=== PATIENT | female | born 1985 | race Caucasian/White ===

== ENCOUNTER → 2023-03-16 13:44 | Outpatient (BNVA) | payer OTHER, SELFPAY | PROVIDERS: PCP Family Medicine; Visit Provider Physician Assistant Surgical | DX: Z13.89 Encounter for screening for other disorder (principal) ==

== ENCOUNTER → 2023-04-17 12:51 | Outpatient (BNVA) | payer OTHER, SELFPAY | PROVIDERS: PCP Family Medicine; Visit Provider Physician Assistant Surgical ==

== ENCOUNTER 2023-05-08 07:12 | Outpatient (REF) | payer OTHER, SELFPAY ==
--- NOTE | ~2023-05-08 | XR_ITS ---
EXAMINATION: XR CHEST CLINICAL INFORMATION: Obesity COMPARISON: None available. TECHNIQUE: 2 views of the chest were obtained. FINDINGS: No significant abnormality is noted involving the heart, lungs, mediastinum, bony thorax or soft tissues. XR/XR chest 2V IMPRESSION: Unremarkable examination.
--- NOTE | 2023-05-08 07:22 | ECG_ITS ---
Test Reason : e66.01 Blood Pressure : / mmHG Vent. Rate : 057 BPM Atrial Rate : 057 BPM P-R Int : 124 ms QRS Dur : 096 ms QT Int : 428 ms P-R-T Axes : 036 033 035 degrees QTc Int : 416 ms Sinus bradycardia with sinus arrhythmia Otherwise normal ECG No previous ECGs available Referred By: Luis Oliver Electronically Signed By:DESHAUN GREWAL MD
[2023-05-08 07:42] LABS: MANUAL DIFF FLAG NO
[2023-05-08 08:01] LABS: Basophils Percent Auto 0.9 % (0-2); Eosinophils Absolute Auto 0.1 X10*3/uL (0.0-0.4); Eosinophils Percent Auto 2.4 % (0-4); Hematocrit 40.6 % (37.0-47.0); Imm Gran Abs Auto 0.01 X10*3/uL (0.00-0.03); Imm Gran Pct Auto 0.2 % (0.0-0.4); Lymphocytes Absolute Auto 1.5 X10*3/uL (1.2-4.9); Lymphocytes Percent Auto 33.5 % (20-40); Mean Corpuscular HGB Conc 34.5 g/dl (31.0-35.0); Mean Corpuscular Hemoglobin 31.7 pg (27.0-33.0); Mean Corpuscular Volume 91.9 fL (80.0-98.0); Mean Platelet Volume 11.6 fL (9.4-12.3); Monocytes Absolute Auto 0.2 X10*3/uL (0.1-1.2); Monocytes Percent Auto 5.3 % (2-11); Neutrophils Absolute Auto 2.6 x10*3/uL (2.0-8.3); Neutrophils Percent Auto 57.7 % (45-73); Platelet Count 234 X10*3/uL (160-400); Red Blood Count 4.42 X10*6/uL (4.20-5.50); Red Cell Distribution Width 12.5 % (11.0-16.0); White Blood Count 4.5 X10*3/uL (4.8-10.8)
[2023-05-08 08:04] LABS: Estimated Average Glucose 97 mg/dL
[2023-05-08 08:34] LABS: Alanine Aminotransferase 15 U/L (0-31); Alkaline Phosphatase 60 U/L (39-117); Anion Gap 14 (12-20); Aspartate Amino Transferase 20 U/L (5-31); Bilirubin Total 0.4 mg/dL (0.0-1.0); Blood Urea Nitrogen 15 mg/dL (9-16); Calcium 9.3 mg/dL (8.4-10.2); Carbon Dioxide 25 mmol/L (22-29); Chloride 106 mmol/L (96-108); Cholesterol 125 mg/dL; Estimated Glomerular Filt Rate > 60; Glucose Random 98 mg/dL (60-115); HDL Cholesterol 43 mg/dL; Iron 98 mcg/dL (30-160); LDL Cholesterol Calculated 71 mg/dl; Percent Iron Saturation 30 % (15-50); Potassium 3.9 mmol/L (3.3-5.1); Sodium 141 mmol/L (135-145); Total Iron Binding Capacity 327 mcg/dL (228-428); Triglycerides 58 mg/dL; Unsaturated Iron Binding 229 ug/dL
[2023-05-08 08:53] LABS: Ferritin 80 ng/mL (10-122); Insulin 7 uU/mL (2-29); TSH reflex Free T4 1.33 uIU/mL (0.32-4.0); Vitamin D 25-OH Total 30.3 ng/mL (>30)
[2023-05-08 09:06] LABS: Folate 17.3 ng/mL (> or = 4.0); Vitamin B12 1113 pg/mL (200-900)
[2023-05-13 01:57] LABS: Zinc 102 mcg/dL (60-130)
[2023-05-13 14:18] LABS: Calcium (PTHI) 8.9 mg/dL (8.6-10.2); PTHI 60 pg/mL (16-77)
[2023-05-14 02:43] LABS: Vitamin A 44 mcg/dL (38-98)
[2023-05-15 14:09] LABS: Vitamin B1 13 nmol/L (8-30)
== END 2023-05-08 07:13 | disposition home or self-care (01) ==
LOC: HO.LAB 07:12
PROVIDERS: Visit Provider Physician Assistant Surgical
DX: E66.01 Morbid (severe) obesity due to excess calories (principal)
CPT/HCPCS: 36415; 71046; 80053; 80061; 82306; 82607; 82728; 82746; 83036; 83525; 83540; 83970; 84425; 84443; 84590; 84630; 85025; 86140; 93005

== ENCOUNTER → 2023-05-15 15:09 | Outpatient (BNVA) | payer OTHER, SELFPAY | PROVIDERS: Referring Provider Physician Assistant Surgical; Visit Provider Counselor Mental Health ==

== ENCOUNTER → 2023-05-27 13:37 | Outpatient (BNVA) | payer OTHER, SELFPAY | PROVIDERS: Visit Provider Physician Assistant Surgical ==

== ENCOUNTER 2023-05-28 10:05 | Outpatient (REF) | payer OTHER, SELFPAY | END 2023-05-28 10:06 | disposition home or self-care (01) | LOC: HO.LNP 10:05 | PROVIDERS: Visit Provider Physician Assistant Surgical | DX: E66.01 Morbid (severe) obesity due to excess calories (principal) | CPT/HCPCS: 83013 ==

== ENCOUNTER 2023-06-01 15:40 | Outpatient (AMB) | payer OTHER, SELFPAY ==
--- NOTE | 2023-06-01 15:39 | MHC.AMNUTRGE ---
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 But now is starting to feel low energy. using Zone bars and Orgain shakes. 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 Her goal was weight loss but only lost 10# over the year Dietary counseling reduction Who buys your food self Who prepares/cooks your food self Meal frequency regular: breakfast (bagel with almond butter, banana, rice cakes with bulgarian yogurt), lunch (salad with cottage cheese ), dinner (chicken ) and snacks Lifestyle Eating out rarely or never Food frequency Meats/poultry/fish (protein): daily, Water: daily, Soda: never, Juice: never, Coffee: daily and Alcohol: never ( its been over a year since I've had a drink ) Diagnosis Nutrition problem #1 overweight/obesity As related to (etiology) #1 excess energy intake and physical inactivity As evidenced by (sign/symptom) #1 high BMI Monitoring/Goals Nutrition problem monitoring total energy intake, level of knowledge/skill, total PRO intake, total CHO intake and weight Outcome progress progressing Learning/Education Readiness to learn excellent Stages of change action Educational materials provided Yes Most Recent Diabetes Results: Cholesterol 125 mg/dL 05/08/23 HDL Cholesterol 43 mg/dL 05/08/23 Triglycerides 58 mg/dL 05/08/23 Creatinine 0.66 mg/dL (0.5-1.4) 05/08/23 Blood Urea Nitrogen 15 mg/dL (9-16) 05/08/23 Sodium 141 mmol/L (135-145) 05/08/23 Potassium 3.9 mmol/L (3.3-5.1) 05/08/23 Chloride 106 mmol/L (96-108) 05/08/23 Carbon Dioxide 25 mmol/L (22-29) 05/08/23 Calcium 9.3 mg/dL (8.4-10.2) 05/08/23 AST 20 U/L (5-31) 05/08/23 ALT 15 U/L (0-31) 05/08/23 Total Protein 7.0 g/dL (6.5-8.0) 05/08/23 Albumin 4.0 g/dL (3.5-5.0) 05/08/23 PFSH Surgical History Hx of cholecystectomy Hx of tubal ligation Hx of wisdom tooth extraction Family History Mother No problems noted. Father No problems noted. Daughter Anxiety Son Asthma Son No problems noted. Social History Alcohol intake: current Alcohol intake frequency: holidays/special occasions only Patient Tobacco Use Status: Never used Tobacco Assessment & Plan Assessment & Plan (1) Obesity (BMI 30-39.9): Code(s): E66.9 - Obesity, unspecified Patient Instructions: Has lost about 10# of muscle mass. recommended going back to 2 scoops of powder per shake and assess further changes as needed. Patient is cleared from a nutrition standpoint for bariatric surgery. Educational requirements have been completed. Reviewed vitamin supplementation and commitment to protein shake for several months post surgery. Encouraged communication with office as needed Telehealth Telehealth Location of provider rendering services: practice address Location of patient: address on file Patient Identification confirmed using: Name, : Yes Telehealth method: voice only Patient verbally consented to treatment: Yes Patient verbally consented to billing insurance company: Yes Patient informed of any privacy concerns related to visit: Yes Minutes spent on Phone/Video with Pt.: 30 Coding Level of Care Code Nutr Indiv Intake (20797) Diagnoses Obesity (BMI 30-39.9) E66.9 Time Spent (min) 30
[2023-06-01 15:49] VITALS: BMI 35.7
== END 2023-06-01 16:11 | disposition home or self-care (01) ==
LOC: HO.HBS 15:40
PROVIDERS: Referring Provider Physician Assistant Surgical; Visit Provider Dietitian, Registered
DX: E66.9 Obesity, unspecified (principal)

== ENCOUNTER → 2023-06-01 15:40 | Outpatient (BNVA) | payer OTHER, SELFPAY | PROVIDERS: Referring Provider Physician Assistant Surgical; Visit Provider Dietitian, Registered | DX: E66.9 Obesity, unspecified (principal); Z68.35 Body mass index [BMI] 35.0-35.9, adult; Z71.3 Dietary counseling and surveillance | CPT/HCPCS: 97802 ==

== ENCOUNTER 2023-06-22 08:10 | Outpatient (REF) | payer OTHER, SELFPAY ==
--- NOTE | ~2023-06-22 | US_ITS ---
EXAMINATION: US COMPLETE ABDOMEN WITH LIVER ELASTOGRAPHY CLINICAL INFORMATION: Morbid/severe obesity due to excess calories COMPARISON: None available. TECHNIQUE: Real-time imaging of the abdominal viscera. Noninvasive ultrasound liver fibrosis assessment is performed using Zully ElastPQ point quantification shear wave elastography (2D-SWE) with a C5-2 MHz transducer. Multiple elastography samples are obtained. FINDINGS: The exam is slightly limited due to overlying bowel gas. PANCREAS: Normal. The visualized pancreatic head and body are normal in appearance. The remainder of the pancreas is obscured from visualization by the overlying bowel gas. ABDOMINAL AORTA: The proximal, middle, and distal aortic segments are normal in caliber. INFERIOR VENA CAVA: Visualized portions are normal. LIVER: Normal. The liver demonstrates normal size, contour and echogenicity. No focal lesion or intrahepatic biliary duct dilatation. The right lobe measures 15.7 cm in length. The left lobe measures 8.8 cm in length. Portal flow is hepatopedal Shear wave liver elastography median stiffness is 1.27 m/s (reference: normal median stiffness is 1.3 m/s or less). IQR/median stiffness to assess sampling precision is 0.13 (reference: good quality data set is IQR/median stiffness of 0.15 or less). GALLBLADDER: Normal. The gallbladder is physiologically distended without evidence of stones, sludge, polyps, wall thickening or pericholecystic fluid. COMMON BILE DUCT: Normal in caliber measuring 0.3 cm in diameter. RIGHT KIDNEY: Normal. No hydronephrosis. No renal calculi or focal parenchymal lesions. The kidney measures 12.1 cm in maximum dimension. LEFT KIDNEY: Normal. No hydronephrosis. No renal calculi or focal parenchymal lesions. The kidney measures 11.7 cm in maximum dimension. SPLEEN: Normal. The spleen measures 10.8 cm in maximum dimension. FREE FLUID: None. US/US abdomen comp w elastography IMPRESSION: Mild hepatic increased echogenicity but no focal lesion seen. Rest of the abdominal ultrasound is unremarkable. 2. Liver elastography median liver stiffness measures 1.27 m/s corresponding to high probably normal exam. REFERENCE: Society of Radiologists in Ultrasound Liver Stiffness Thresholds (2020): LIVER STIFFNESS THRESHOLDS: *Liver Stiffness equal or less than 1.3 m/s: High probability of being normal. *Liver Stiffness less than 1.7 m/s: In the absence of other known clinical signs, rules out compensated advanced chronic liver disease. *Liver Stiffness 1.7-2.1 m/s: Suggestive of compensated advanced chronic liver disease but need further test for confirmation. *Liver Stiffness over 2.1 m/s: Rules in compensated advanced chronic liver disease. *Liver Stiffness over 2.4 m/s: Suggestive of clinically significant portal hypertension. QUALITY OF DATA SET: *IQR/Median value equal or less than 0.15 implies a quality data set. *IQR/Median value over 0.15 implies a poor quality data set. SIGNIFICANT CHANGE FROM PRIOR EXAM: Significant change if liver stiffness measurement is 10% or greater from prior exam. OTHER CONSIDERATIONS: The stage of liver fibrosis may be overestimated in the setting of acute hepatitis, liver inflammation, elevated liver function tests, hepatic vascular congestion, obstructive cholestasis, non-fasting state, and infiltrative diseases such as amyloidosis and lymphoma. In some patients with NAFLD, the liver stiffness thresholds for compensated advanced chronic liver disease may be lower. In causes other than viral hepatitis and NAFLD, liver stiffness thresholds are not well established.
--- NOTE | ~2023-06-22 | FL_ITS ---
EXAMINATION: XR FLUOROSCOPY UPPER GI WITH AIR CLINICAL INFORMATION: Morbid/severe obesity due to excess calories COMPARISON: None available. TECHNIQUE: Routine upper GI air-contrast study was performed in upright and lying position. FINDINGS: Following oral administration of thick barium and effervescent granules there is normal propagation of bolus from the oral cavity through the pharynx, esophagus into stomach without any evidence of obstruction, narrowing or stricture. On placing patient supine and prone lying the course, caliber and peristalsis of the stomach, duodenal bulb and CBD is normal. There is a mild gastroesophageal reflux without hiatal hernia. FLUOROSCOPY TIME: 2.6 minutes DOSE AREA PRODUCT: 42.933 uGy-m2 (microgray-meter squared) FL/FL upper GI w air IMPRESSION: Mild gastroesophageal reflux without hiatal hernia.
== END 2023-06-22 08:11 | disposition home or self-care (01) ==
LOC: HO.US 08:10
PROVIDERS: Visit Provider Physician Assistant Surgical
DX: E66.01 Morbid (severe) obesity due to excess calories (principal)
CPT/HCPCS: 74246; 76705; 76981

== ENCOUNTER → 2023-06-22 08:11 | Outpatient (BNV) | payer OTHER, SELFPAY | PROVIDERS: Visit Provider Radiology Diagnostic Radiology | DX: K21.9 Gastro-esophageal reflux disease without esophagitis (principal) | CPT/HCPCS: 74246 ==

== ENCOUNTER 2023-06-29 07:51 | Outpatient (AMB) | payer OTHER, SELFPAY ==
--- NOTE | 2023-06-29 11:36 | A.OFFVIS_ITS ---
Intake VS Expanded 06/29/23 11:47 Height 5 ft 4.5 in Weight 201 lb 8 oz BMI 34.0 Body Fat 88.3 Body Fat Percentage 43.8 Free Fat Mass 113.4 Visceral Mass 17 Water Mass 77.6 BMR 1,489 Intake Visit Reasons: TV Consult/Transfer Luis Allergies No Known Allergies Allergy (Verified 06/29/23 11:36) Medication List - Last Reconciled 06/29/23 by Wilfredo Wilkins MD [L-LYSINE PO] valacyclovir 500 mg PO DAILY venlafaxine ER 37.5 mg PO DAILY HPI TV Consult/Transfer Luis HPI Details Start time: 11.30am, End time: 12.02pm ?I spent 27 minutes speaking with the patient on the phone plus an additional 5 minutes reviewing and updating records for a total of 32 minutes HPI Comments History of Present Illness Details Overall weight loss: 37.6lbs, or 15.7% TBWL Is doing 2 Orgain protein shakes (2 scoops each in almond milk), one more Orgain protein shake (1 scoop in 8oz almond milk), one Atkins protein bar and one meal (8 forks of protein and 8 forks of salad or vegetables) Exercise: stationary bike or indoor walking PFS Medical History (Updated 06/29/23 @ 11:56 by Wilfredo Wilkins MD) Depression Surgical History Hx of cholecystectomy Hx of tubal ligation Hx of wisdom tooth extraction Family History Mother No problems noted. Father No problems noted. Daughter Anxiety Son Asthma Son No problems noted. Social History Alcohol intake: current Alcohol intake frequency: holidays/special occasions only Patient Tobacco Use Status: Never used Tobacco Assessment & Plan Assessment & Plan (1) Depression: Code(s): F32.A - Depression, unspecified (2) Obesity (BMI 30-39.9): Code(s): E66.9 - Obesity, unspecified Plan: 1. Plan for lap sleeve gastrectomy including upper GI endoscopy. All tests has been completed and reviewed and the patient is cleared for the surgery. ?If diaphragmatic or ventral hernias are present at time of surgery, these will be repaired laparoscopically as well. Risks and complications were discussed in detail including possible conversion to an open procedure, anastomotic leak, bleeding requiring transfusion, small bowel obstruction, , DVT and pulmonary embolism, cardiac, or pulmonary complications, as shelter complications such as anastomotic ulcer, insufficient weight loss and vitamin deficiencies. I emphasized the importance of close follow-up, adherence to instructions and good communication. So far she has proven to be an excellent communicator and very compliant with all our directions accomplishing a great weight loss. I believe that she is an excellent candidate and she is ready. 2. Change nutritional plan to 3 Orgain protein shakes (1 scoop EACH in 8oz almond milk), one Atkins protein bar and one meal (8 forks of protein and 8 forks of salad or vegetables) 3. Try to the stationary bike or the treadmill, one or the other for 300 calories daily 4. Start treadmill with an incline of 2.0 and speed of 3.5. Increase incline by 1 every 3 min to a max incline of 8.0, stay 3min at 8.0 and then return to 2.0 and repeat same steps until calorie goal is met. Goal is to burn 2000 calories per week on exercise, which means either 300 calories daily, or 400 calories 5 days per week, or 500 calories 4 days per week, or 650 calories 3 days per week. Start also weight exercises with 20-30lbs for chest/shoulders/abdomen and 40- 50lbs for thighs doing 2 sets of 15 repetitions each. 5. Alternatively start stationary bike at a resistance level of 4.0 Increase level by 1.0 every 3 min to a max level of 10.0. Stay at this level for 3 min and then return to level 4.0 and repeat same steps until 300 calories are burned. Velocity target is 12mph and heart rate is 145 bpm. 6. Send me weight measurements weekly on Mondays (3) BMI 34.0-34.9,adult: Code(s): Z68.34 - Body mass index [BMI] 34.0-34.9, adult Telehealth Telehealth Location of provider rendering services: practice address Location of patient: address on file Patient Identification confirmed using: Name, : Yes Telehealth method: voice only Patient verbally consented to treatment: Yes Patient verbally consented to billing insurance company: Yes Patient informed of any privacy concerns related to visit: Yes Minutes spent on Phone/Video with Pt.: 32 Coding Level of Care Code Tele Est Pt Level 4 (54923) Diagnoses Depression F32.A Obesity (BMI 30-39.9) E66.9 BMI 34.0-34.9,adult Z68.34 Time Spent (min) 32
[2023-06-29 11:47] VITALS: BMI 34.0
== END 2023-06-29 12:03 | disposition home or self-care (01) ==
LOC: HO.HBS 07:51
PROVIDERS: Visit Provider Surgery
DX: F32.A Depression, unspecified (principal); E66.9 Obesity, unspecified; Z68.34 Body mass index [BMI] 34.0-34.9, adult
CPT/HCPCS: 99214

== ENCOUNTER → 2023-06-29 07:51 | Outpatient (BNVA) | payer OTHER, SELFPAY | PROVIDERS: Visit Provider Surgery ==

== ENCOUNTER 2023-07-21 10:33 | Outpatient (AMB) | payer OTHER, SELFPAY ==
--- NOTE | 2023-07-21 10:44 | MHC.OFFVISWM ---
Intake VS Expanded 07/21/23 10:55 Height 5 ft 4.5 in Weight 193 lb 2 oz BMI 32.6 Body Fat 80.1 Body Fat Percentage 41.5 Free Fat Mass 113 Visceral Mass 15 Water Mass 77.4 BMR 1,475 Intake Visit Reasons: TV Pre Op LSG 07/28/23 Allergies No Known Allergies Allergy (Verified 07/21/23 10:46) Medication List - Last Reconciled 07/21/23 by Wilfredo Wilkins MD [L-LYSINE PO] ondansetron 4 mg PO Q12H pantoprazole 40 mg PO DAILY polyethylene glycol 3350 (Miralax) 17 grams PO DAILY sucralfate 10 mL PO BID valacyclovir 500 mg PO DAILY venlafaxine ER 37.5 mg PO DAILY HPI TV Pre Op LSG 07/28/23 HPI Details Start time: 10.42am, End time: 11.02am ?I spent 15 minutes speaking with the patient on the phone plus an additional 5 minutes reviewing and updating records for a total of 20 minutes HPI Comments History of Present Illness Details Overall weight loss: 46.2lbs, 19.3% TBWL Is doing 3 Orgain protein shakes (1 scoop each in 8oz almond milk), one Zone Perfect protein bar and a meal (8 forks of protein and 8 forks of salad or vegetables) Exercise: weight lifting and treadmill x4-5 per week for 300 calories PFSH Medical History (Updated 07/21/23 @ 10:58 by Wilfredo Wilkins MD) Depression Surgical History Hx of cholecystectomy Hx of tubal ligation Hx of wisdom tooth extraction Family History Mother No problems noted. Father No problems noted. Daughter Anxiety Son Asthma Son No problems noted. Social History Alcohol intake: current Alcohol intake frequency: holidays/special occasions only Patient Tobacco Use Status: Never used Tobacco Assessment & Plan Assessment & Plan (1) Obesity (BMI 30-39.9): Code(s): E66.9 - Obesity, unspecified Plan: 1. Plan for lap sleeve gastrectomy including upper GI endoscopy. All tests has been completed and reviewed and the patient is cleared for the surgery. ?If diaphragmatic or ventral hernias are present at time of surgery, these will be repaired laparoscopically as well. 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 I emphasized the importance of close follow-up, adherence to instructions and good communication. So far she has proven to be an excellent communicator and very compliant with all our directions accomplishing a great weight loss. I believe that she is an excellent candidate and she is ready. 2. Preop prescriptions were provided and explained the purpose of each one. Need to be purchased preop. Start Pantoprazole now as you get it from the pharmacy, 1 pill per day. Sucralfate and Zofran are for after surgery as needed. 3. Bowel prep: please do 7 packets ?of Miralax mixing each one with a an 8oz glass of water, crystal light, gatorade zero, or propel ?on 07/26/23 and the same amount on 07/27/23. Continue the protein shakes during? the bowel prep. 4. Needs to purchase 1oz medicine cups . 5. Needs to purchase Children's liquid Tylenol for postop pain control. 6. Avoid aspirin, motrin, Advil, Aleve, Ibuprofen, Naproxyn. Tylenol is OK. 7. She needs to purchase the Celebrate 4:1 protein shakes from the [facility]. 8. Will do basic preop blood work-up any day between Thursday07/22/23 and Thursday07/24/23 fasting for 12 hours and is scheduled to see the Anesthesiologist prior to the day of surgery. 9. Importance of adherence to postop folllow-up and recommendations was underscored and she understands that. 10. Stop food and bars as of today 07/21/23 and continue with 4 Orgain protein shakes (ONE scoop EACH in 8oz almond milk) at 7am-9am, 10am-12pm, 1pm-3pm, 4pm-6pm and one more Orgain protein shake with TWO scoops in 8oz of almond milk at 7pm-9pm 11. No soups, broths or V8 12. The patient's?medical?history has been reviewed and they are considered low risk for post op DVT and therefore DVT prophylaxis is not considered necessary. Travel after surgery was reviewed. The patient has not disclosed any travel plans during the first 30 days after surgery and they have been advised that within the first 30 days after surgery any bus, plane, train or car travel over 2 hours in duration is contraindicated due to the possibility of developing blood clots from immobility. Any travel, needs to include periods of ambulation of 10 minutes in duration every 2 hours.? Patient was instructed to discuss any plans for travel during this period with their bariatric surgeon.? 13. Please take at the day of surgery the following medications: 14. Stop any control pills and don't use them for one month after surgery 15. Absolutely no smoking or vaping, or marijuana until the surgery and for at least the first 4 weeks. Only nicotine patches are allowed. 16. Send me weight measurements on and then on the day of surgery before you go to the hospital. 17. Avoid any steroids by mouth for any reason. Let me know if someone prescribes them to you (2) BMI 32.0-32.9,adult: Code(s): Z68.32 - Body mass index [BMI] 32.0-32.9, adult Telehealth Telehealth Location of provider rendering services: practice address Location of patient: address on file Patient Identification confirmed using: Name, : Yes Telehealth method: voice only Patient verbally consented to treatment: Yes Patient verbally consented to billing insurance company: Yes Patient informed of any privacy concerns related to visit: Yes Minutes spent on Phone/Video with Pt.: 20 Coding Level of Care Code Tele Est Pt Level 3 (97602) Diagnoses Obesity (BMI 30-39.9) E66.9 BMI 32.0-32.9,adult Z68.32 Time Spent (min) 20
[2023-07-21 10:55] VITALS: BMI 32.6
== END 2023-07-21 11:03 | disposition home or self-care (01) ==
LOC: HO.HBS 10:33
PROVIDERS: Visit Provider Surgery
DX: E66.9 Obesity, unspecified (principal); Z68.32 Body mass index [BMI] 32.0-32.9, adult
CPT/HCPCS: 99213

== ENCOUNTER → 2023-07-21 10:33 | Outpatient (BNVA) | payer OTHER, SELFPAY | PROVIDERS: Visit Provider Surgery ==

== ENCOUNTER 2023-07-28 07:52 | Day surgery (SDC) | payer OTHER, SELFPAY ==
[2023-07-22 07:07] LABS: MANUAL DIFF FLAG NO
[2023-07-22 07:29] LABS: Basophils Percent Auto 1.1 % (0-2); Eosinophils Absolute Auto 0.1 X10*3/uL (0.0-0.4); Eosinophils Percent Auto 3.1 % (0-4); Hematocrit 40.8 % (37.0-47.0); Hemoglobin 14.2 g/dl (12.0-16.0); Imm Gran Abs Auto 0.01 X10*3/uL (0.00-0.03); Imm Gran Pct Auto 0.3 % (0.0-0.4); Lymphocytes Absolute Auto 1.4 X10*3/uL (1.2-4.9); Lymphocytes Percent Auto 39.8 % (20-40); Mean Corpuscular HGB Conc 34.8 g/dl (31.0-35.0); Mean Corpuscular Hemoglobin 32.5 pg (27.0-33.0); Mean Corpuscular Volume 93.4 fL (80.0-98.0); Mean Platelet Volume 12.5 fL (9.4-12.3); Monocytes Absolute Auto 0.3 X10*3/uL (0.1-1.2); Monocytes Percent Auto 8.2 % (2-11); Neutrophils Absolute Auto 1.7 x10*3/uL (2.0-8.3); Neutrophils Percent Auto 47.5 % (45-73); Platelet Count 175 X10*3/uL (160-400); Red Blood Count 4.37 X10*6/uL (4.20-5.50); Red Cell Distribution Width 13.5 % (11.0-16.0); White Blood Count 3.5 X10*3/uL (4.8-10.8)
[2023-07-22 07:34] LABS: Prothrombin Time 11.6 SEC (11.1-13.3)
[2023-07-22 07:36] LABS: Estimated Average Glucose 88 mg/dL; Hemoglobin A1C 104.6224 umol/L; Hemoglobin A1c % 4.7 % (<6.0); Partial Thromboplastin Time 33.8 SEC (26.0-36.4)
[2023-07-22 07:49] LABS: Alanine Aminotransferase 13 U/L (0-31); Alkaline Phosphatase 53 U/L (39-117); Anion Gap 13 (12-20); Aspartate Amino Transferase 15 U/L (5-31); Bilirubin Total 0.4 mg/dL (0.0-1.0); Blood Urea Nitrogen 11 mg/dL (9-16); C Reactive Protein 0.15 mg/dL (< or = 0.50); Calcium 9.6 mg/dL (8.4-10.2); Carbon Dioxide 28 mmol/L (22-29); Chloride 105 mmol/L (96-108); Cholesterol 134 mg/dL (<200); Estimated Glomerular Filt Rate > 60; Glucose Random 90 mg/dL (60-115); HDL Cholesterol 39 mg/dL (>40); LDL Cholesterol Calculated 82 mg/dL (<100); Potassium 3.5 mmol/L (3.3-5.1); Sodium 142 mmol/L (135-145); Total Protein 6.7 g/dL (6.5-8.0); Triglycerides 67 mg/dL (<150)
[2023-07-22 08:03] LABS: Insulin 4 uU/mL (2-29)
[2023-07-22 08:34] LABS: Free T4 (Free Thyroxine) 1.03 ng/dL (0.71-1.85)
[2023-07-23 15:25] VITALS: BMI 32.3
--- NOTE | 2023-07-24 10:20 | P.CONAN_ITS ---
Documented by User: Anabel Willett NP 07/24/23 10:21 HPI - Anesthesia Eval Consult details Narrative: 38yo F for Gastrectomy Sleeve, possbile diaphragmatic hernia, possbile ventral hernia, possible open PMFSH Active Problems Active Problems: All Active Problems (Updated 07/23/23 @ 15:31 by Qi Tilley RN) Morbid obesity (Acute) Obesity (BMI 30-39.9) (Acute) BMI 34.0-34.9,adult (Acute) BMI 33.0-33.9,adult (Acute) BMI 32.0-32.9,adult (Acute) Depression (Acute) Past Medical History Medical History (Updated 07/28/23 @ 10:03 by Wilfredo Wilkins MD) Body piercing Depression HSV (herpes simplex virus) infection Pre-diabetes Family History Family History Mother No problems noted. Father No problems noted. Daughter Anxiety Son Asthma Son No problems noted. Surgical History Surgical History (Updated 07/28/23 @ 12:13 by Sunita Borrero PA-C) History of loop electrical excision procedure (LEEP) Hx of cholecystectomy Hx of tubal ligation Hx of wisdom tooth extraction Social History Social History Household Members: Children Household Members Other:: children-dual custody w/ex-spouse Housing: Apartment Are you a primary care provider to a significant other at home: Yes (dual custody with ex-spouse, is primary caregiver when children are w/her) Do you presently have visiting nurse or other home services: No Alcohol intake: current Alcohol intake frequency: holidays/special occasions only Patient Tobacco Use Status: Never used Tobacco Tobacco use type: Cigarette Years Smoked: 10 Use of substances other than those prescribed or required for medical reasons: No Currently Displaying Signs/Symptoms of Drug Intoxication Withdrawal: No Have you been hit, kicked, punched, or otherwise hurt by someone within the past year? If so, by whom?: No Do you feel safe in your current relationship?: Yes Is there a partner from a previous relationship who is making you feel unsafe now?: No Are you made to feel afraid or neglected: No Are you DNR?: No Advance Directives: No Advance Directives Information Provided: Yes Advance Directives on File: No Do you have thoughts of harming others: None Do you have a plan to hurt others: No Plan Recently lost weight without trying: Yes How much weight loss: 34pounds or more Eating poorly because of decreased appetite: No Nutrition screen score: 6 Nutrition Risks: No Nutritional Risk Patient : No FDLMP: 07/20/23 : No Poor oral hygiene: No Meds Allergies Allergy/AdvReac Type Severity Reaction Status Date / Time No Known Allergies Allergy Verified 07/28/23 08:20 Home Medications Medication Instructions Recorded Confirmed Last Taken Type valacyclovir 500 mg tablet 500 mg PO DAILY 03/16/23 07/28/23 07/27/23 History venlafaxine 37.5 mg 37.5 mg PO DAILY 03/16/23 07/28/23 07/27/23 History capsule,extended release 24 hr lysine 500 mg tablet (L-Lysine) 500 mg PO DAILY 07/23/23 07/28/23 07/27/23 History Exam Exam Date and Time: July 24, 2023 1020 Height,Weight and Vital Signs: Height 5 ft 4.5 in Weight 86.636 kg Pertinent Lab Results Pertinent Lab Results: Laboratory Tests 07/22/23 07/22/23 07/22/23 06:53 07:05 07:05 WBC 3.5 L RBC 4.37 Hgb 14.2 Hct 40.8 MCV 93.4 MCH 32.5 MCHC 34.8 RDW 13.5 Plt Count 175 D MPV 12.5 H Immature Gran % (Auto) 0.3 Neut % (Auto) 47.5 Lymph % (Auto) 39.8 [place] % (Auto) 8.2 Eos % (Auto) 3.1 Baso % (Auto) 1.1 Lymph # (Auto) 1.4 [place] # (Auto) 0.3 Eos # (Auto) 0.1 Baso # (Auto) 0.0 Abs Immat Gran (auto) 0.01 Absolute Neuts (auto) 1.7 L Absolute Nucleated RBC 0.000 Nucleated RBC % (auto) 0.0 PT 11.6 INR 1.0 APTT 33.8 Sodium Potassium Chloride Carbon Dioxide Anion Gap BUN Creatinine Estim Creat Clear Calc Estimated GFR Random Glucose Estimat Average Glucose Hemoglobin A1c % Insulin Level Calcium Total Bilirubin AST ALT Alkaline Phosphatase C-Reactive Protein Total Protein Albumin Triglycerides Cholesterol LDL Cholesterol, Calc HDL Cholesterol TSH Free T4 Blood Type O Negative Antibody Screen NEGATIVE 07/22/23 07/22/23 07:05 07:05 WBC RBC Hgb Hct MCV MCH MCHC RDW Plt Count MPV Immature Gran % (Auto) Neut % (Auto) Lymph % (Auto) [place] % (Auto) Eos % (Auto) Baso % (Auto) Lymph # (Auto) [place] # (Auto) Eos # (Auto) Baso # (Auto) Abs Immat Gran (auto) Absolute Neuts (auto) Absolute Nucleated RBC Nucleated RBC % (auto) PT INR APTT Sodium 142 Potassium 3.5 Chloride 105 Carbon Dioxide 28 Anion Gap 13 BUN 11 Creatinine 0.69 Estim Creat Clear Calc TNP Estimated GFR > 60 Random Glucose 90 Estimat Average Glucose 88 Hemoglobin A1c % 4.7 Insulin Level 4 Calcium 9.6 Total Bilirubin 0.4 AST 15 ALT 13 Alkaline Phosphatase 53 C-Reactive Protein 0.15 Total Protein 6.7 Albumin 4.0 Triglycerides 67 Cholesterol 134 LDL Cholesterol, Calc 82 HDL Cholesterol 39 L TSH 4.10 H Free T4 1.03 Blood Type Antibody Screen Narrative Narrative: EKG 04/2023 Vent. Rate : 057 BPM ? ? Atrial Rate : 057 BPM ?? P-R Int : 124 ms? QRS Dur : 096 ms ? ? QT Int : 428 ms ? ? ? P-R-T Axes : 036 033 035 degrees ?? QTc Int : 416 ms ? Sinus bradycardia with sinus arrhythmia Otherwise normal ECG No previous ECGs available Assessment and Plan Assessment Anesthesia Assessment: Chart Reviewed Documented by User: Isaias Hernandez MD 07/28/23 21:46 [facility], [facility] Past Medical History Medical History (Updated 07/28/23 @ 10:03 by Wilfredo Wilkins MD) Body piercing Depression HSV (herpes simplex virus) infection Pre-diabetes Functional capacity: independent ambulation Family History Family History Mother No problems noted. Father No problems noted. Daughter Anxiety Son Asthma Son No problems noted. Family history of problems with anesthesia: No Surgical History Surgical History (Updated 07/28/23 @ 12:13 by Sunita Borrero PA-C) History of loop electrical excision procedure (LEEP) Hx of cholecystectomy Hx of tubal ligation Hx of wisdom tooth extraction History of Problems with Anesthesia: No Social History Social History Household Members: Children Household Members Other:: children-dual custody w/ex-spouse Housing: Apartment Are you a primary care provider to a significant other at home: Yes (dual custody with ex-spouse, is primary caregiver when children are w/her) Do you presently have visiting nurse or other home services: No Alcohol intake: current Alcohol intake frequency: holidays/special occasions only Patient Tobacco Use Status: Never used Tobacco Tobacco use type: Cigarette Years Smoked: 10 Use of substances other than those prescribed or required for medical reasons: No Currently Displaying Signs/Symptoms of Drug Intoxication Withdrawal: No Have you been hit, kicked, punched, or otherwise hurt by someone within the past year? If so, by whom?: No Do you feel safe in your current relationship?: Yes Is there a partner from a previous relationship who is making you feel unsafe now?: No Are you made to feel afraid or neglected: No Are you DNR?: No Advance Directives: No Advance Directives Information Provided: Yes Advance Directives on File: No Do you have thoughts of harming others: None Do you have a plan to hurt others: No Plan Recently lost weight without trying: Yes How much weight loss: 34pounds or more Eating poorly because of decreased appetite: No Nutrition screen score: 6 Nutrition Risks: No Nutritional Risk Patient : No FDLMP: 07/20/23 : No Poor oral hygiene: No Meds Allergies Allergy/AdvReac Type Severity Reaction Status Date / Time No Known Allergies Allergy Verified 07/28/23 08:20 Home Medications Medication Instructions Recorded Confirmed Last Taken Type valacyclovir 500 mg tablet 500 mg PO DAILY 03/16/23 07/28/23 07/27/23 History venlafaxine 37.5 mg 37.5 mg PO DAILY 03/16/23 07/28/23 07/27/23 History capsule,extended release 24 hr lysine 500 mg tablet (L-Lysine) 500 mg PO DAILY 07/23/23 07/28/23 07/27/23 History Exam Airway Mallampati Class: IV Loose/Missing/Broken Teeth: Yes (poor dentition globally ) Assessment and Plan Assessment Anesthesia Assessment: Anesthesia Plan Discussed Final Anesthetic Review Family History of Problems with Anesthesia: No History of Problems with Anesthesia: No NPO: Yes ASA Class: II Final Preanesthetic Review: Meds/Allgs Chart Reviewed, Consent Obtained/Reviewed and Anes Risks/Benef Reviewed Patient Risk: Intermediate Procedure Risk: Intermediate Anesthetic Plan Anesthetic Plan: GA and Agree w/ Assess. and Plan Disposition: Standard PACU
--- NOTE | 2023-07-26 21:44 | MHC.SHP ---
Pre-Procedural Eval Section A Date of Service: 07/26/23 The patient is an INPATIENT: Yes The History & Physical has been completed within 30 days and I have reviewed it.: Yes Section B Chief Complaint: Obesity, unspecified Relevant Family History (Specify if Yes): No Relevant Social History: None Present Medications: None Medical History: No relevant PMH History of Previous Operations: No relevant previous surgery Allergies: Allergies Allergy/AdvReac Type Severity Reaction Status Date / Time No Known Allergies Allergy Verified 07/21/23 10:46 Review of Systems Sugical H&P ROS: Negative: Constitution, Cardiovascular, Respiratory, Neurological, Psychiatric, Hem-Onc, Allergic/Immunologic, Gastrointestinal, Genitourinary, Musculoskeletal, Integumentary, Endocrine and Eyes/Ears/Nose/Throat Exam Surgical H&P Exam: Normal: HEENT, Normal: Heart, Normal: Lungs, Normal: Extremities, Normal: Abdomen, Normal: Skin and Normal: Neurological Plan Diagnosis/Plan: Unchanged I have reviewed the history and physical and performed a pertinent physical examination on my patient. No changes have occurred unless specified. Time Spent With Patient Time: Total time managing care of this patient today ____ minutes.
[2023-07-28] VITALS (19 sets, daily range): BP systolic 99–133; BP diastolic 55–78; PULSE 54–95; RESP 16–20; TEMP 36.1–36.5; O2SAT 97–100; BMI 34.0
[2023-07-28] MEDS: Aprepitant 32 MG/4.4 ML VIAL IVPUSH (09:00)
[2023-07-28] MEDS: Lactated Ringers 1,000 ML 100 ML IVCONT ×3 (09:05→22:18)
[2023-07-28] MEDS: Lactated Ringers 1,000 ML 999 ML IV (09:05)
--- NOTE | 2023-07-28 09:57 | P.BOP_ITS ---
Brief Operative Note Date of Service: 07/28/23 Pre-op diagnosis: Severe obesity with comorbidities (see below) Post-op diagnosis: same Procedure: INITIAL PATIENT BMI ON PRESENTATION AT OUR OFFICE: 38.3 kg/m2 LAST BMI BEFORE SURGERY: 33.4 kg/m2 COMORBIDITIES: depression, genital herpes, GERD ?The patient presented to the Weight Management Program with significant obesity that was negatively impacting the patient's comorbidities as listed above.? The program is a phased program with a special focus on preoperative medical weight management to promote substantial weight loss and prepare the patients for the second phase of the program: bariatric surgery. The patient participated in an intensive weekly lifestyle ?intervention and exercise program during which the patient ?has lost between the initial office visit and the last preoperative visit 46.2 lbs, or 12.3% of initial actual body weight. It was deemed appropriate for the patient to now have bariatric surgery. In light of the current Covid-19 pandemic and the well documented strong association of obesity and increased risk of worse outcomes if infected with Covid-19 (REFERENCES: https://pubmed.ncbi.nlm.nih.gov/98815966/ ,? https://pubmed. ncbi.nlm.nih.gov/26465867/ ), any delay in undergoing bariatric surgery may lead to the patient's worsening health condition and increased?risk of more severe Covid-19 disease if infected. In addition a recent?study from [facility] published in [employer] on 11/18/2021 ([email or web address]) found that, among patients with obesity, substantial weight loss achieved with surgery was associated with improved outcomes of COVID-19 infection. The findings suggest that obesity can be a modifiable risk factor for the severity of COVID-19 infection. In addition, the patient met the BMI-criteria for bariatric surgery based on the BMI on initial presentation. The patient should not be penalized for achieving such weight loss because ?it is not sustainable long-term without surgical intervention and it was achieved in preparation for bariatric surgery ?under my direction and based on my published research (f [email or web address]).[email or web address] and? https://www.soard.org/article/S6500-6602(09)24639-X/pdf ) ?that a 10% preoperative weight loss improves long-term weight loss after surgery and reduces perioperative complications.? Insurance carriers such as [facility] have endorsed my recommendations ?and have included in their policies criteria to include a 10% preoperative weight loss requirement. PROCEDURE: Esophago-gastroscopy, laparoscopic?sleeve?gastrectomy and laparoscopic gastropexy INDICATIONS: This is a 38 year-old female who was electively scheduled for laparoscopic, possibly open?sleeve?gastrectomy. The risks and complications of the procedure were discussed with the patient in advance, particularly the possibility of ; pulmonary embolism; staple line leak; bleeding; GERD; cardiac, pulmonary, or renal complications; as well as long-term problems such as insufficient weight loss, vitamin deficiency, strictures, or ulcers. The patient understood all the risks, and was in agreement to proceed with surgery. DESCRIPTION OF PROCEDURE: After informed consent was obtained from the patient, the patient was given preoperative antibiotics, and was transferred to the operating room. After successful induction of general anesthesia, pneumatic compression devices were placed on both lower extremities. An upper endoscopy was performed next. The oropharynx and esophagus appeared to be within normal limits. There was no diaphragmatic hernia present consistent with the findings of the preoperative upper GI. The stomach was entered. Then after all fluid and air were suctioned and the stomach was fully decompressed, the scope was withdrawn and secured in the mid esophagus. The patient was then prepped and draped in the usual sterile manner, and abdominal access was established at the right upper quadrant with the Pedro technique. A 12 mm blunt port was inserted, and the abdomen was insufflated with CO2 to a pressure of 15 mmHg. Under direct visualization, additional ports were placed, specifically two 5 mm Versi-step ports to the left upper quadrant, and a 5 mm Versi-Step port to the right upper quadrant. 1% lidocaine plain was used to infiltrate all port sites as well as all fascia defects. Following that, the patient was placed in a steep reverse Trendelenburg position. An additional 5 mm port was placed to the right flank for the Mediflex retractor that was used to retract the left lobe of the liver. The gastro-esophageal fat pad was opened with the ultrasonic device (Thunderbeat, Olympus) and the anterior esophagus and hiatus were exposed. The angle of His was opened with the ultrasonic device the fundus of the stomach from any diaphragmatic and splenic attachments. I then opened the gastrocolic ligament between the transverse colon and the greater curvature of the stomach with the ultrasonic device to enter the lesser sac and facilitate the ligation of the short gastric vessels. I started at a m id-point along the greater curvature and using the Thunderbeat, all short gastric vessels were divided all the way to the angle of His until the left sal was completely dissected at its entirety. I then divided the gastro-colic ligament distally to a distance of about 3-4?cm proximal to the pylorus. ? The stomach was then divided transversely with one Endo DENIZ-45 purple and four DENIZ-60 articulating orange loads using the [employer] stapler and loads. Every effort was made that the gastric?sleeve?had a tubular shape and an even caliber throughout. Once the?sleeve?resection was completed, the staple line of the gastric?sleeve?was reinforced with Hemoclips. The resected stomach was retrieved without difficulty from the Pedro port. A gastropexy was then performed in order to prevent postoperative GERD and partial gastric volvulus. Several interrupted 2.0 Surgidac sutures were placed between the?sleeve's staple line and the previously divided greater omentum and gastro-colic ligament using the Endo-Stitch device. ?An upper endoscopy was performed. There was no narrowing at the GE junction. The scope was easily advanced all the way to the pylorus which was clearly visualized. There was no narrowing anywhere and the?sleeve's caliber was even throughout. The?sleeve's staple line was inspected and there was no evidence of ischemia, bleeding or dehiscence. At that point the gastroscope was withdrawn from the patient?s mouth while we were decompressing the bowel and the stomach from any remaining air. I looked into the lesser sac to see how the?sleeve?was situating and it was situating well. There was no bleeding from the staple line, spleen, or short gastric vessels. The Mediflex retractor was removed, and the undersurface of the liver was inspected and there was no bleeding. The patient was placed in supine position. I closed the fascial defect of the 12 mm port site with a figure of eight #1 Polysorb suture. Then 30cc Ropivacaine plain with 10 mg of Dexamethasone were u sed to infiltrate the fascial closure as well as all skin incisions. A total of 6ml Zynrelef was applied in the Pedro wound. At this point, the abdomen was deflated, all ports were removed under direct vision, and no bleeding was noted from any of the port sites. The skin incisions were irrigated with saline and were closed with?4-0 absorbable monofilament sutures. Steri-Strips and OpSites were used to cover all incisions. The patient was extubated and was transferred in stable condition to the recovery room for further care. I was present and performed all stoll parts of the procedure. Ms. Borrero was the physician assistant psychiatry. There were no residents to assist with this case. Richard Wilkins MD, PhD, FACS Surgeon: Wilfredo Wilkins MD Anesthesia: GETA, local and other (TAP block and 6ml Zynrelef) Was an Specimen Technician used for this Procedure?: No Specimen Technician: Sunita Borrero Estimated blood loss (mL): 10 IV fluids (mL): 2,500 Urine output (mL): 0 (No Sanchez to record output) Pathology: other (Stomach) Condition: stable Disposition: PACU
--- NOTE | 2023-07-28 09:59 | PM.PNGS ---
Subjective Subjective Date of Service: 07/29/23 Interval history: Feels well. Mild incisional pain. She is tolerating phase 1 bariatric diet Physical Exam Vital Signs: Vital Signs: Last Vital Signs Temp 97.4 F 07/28/23 08:50 Pulse 72 07/28/23 08:50 Resp 16 07/28/23 08:50 BP 133/58 L 07/28/23 08:50 Pulse Ox 97 07/28/23 08:50 O2 Del Method Room Air 07/28/23 08:50 BMI result Body Mass Index 32.3 GI: Inspection: Yes normal to inspection, Yes incision (clean, dry and intact) and Yes obesity Palpation (GI): Soft to palpation Extrem: Right lower extremity: normal to inspection (no calf tenderness) Left lower extremity: normal to inspection (no calf tenderness) Objective Data Active Medications Lactated Ringer's (Lr) 1,000 mls @ 100 mls/hr IVCONT .Q10H JENNIE Last Admin: 07/28/23 09:05 Dose: 100 mls/hr Documented By: CECILIA Labs 07/22/23 07:05 07/22/23 07:05 Procedures Date of Service Date of Service: 07/29/23 Progress Note: A&P Assessment and plan (1) Depression: Status: Acute (2) GERD (gastroesophageal reflux disease): Status: Acute (3) HSV (herpes simplex virus) infection: Status: Acute (4) S/P laparoscopic sleeve gastrectomy: Status: Acute (5) Morbid obesity: Status: Acute Assessment and Plan: s/p laparoscopic sleeve gastrectomy and gastropexy Doing well Will check am labs and if OK the patient will be discharged home Time Spent With Patient Time: Total time managing care of this patient today ____ minutes. Quality Stroke Does the patient have a stroke diagnosis?: No VTE Prior VTE?: No VTE Risk Level:: Surgical - moderate VTE Device Contraindication: N/A - Device Ordered VTE Drug Contraindication: Treatment Not Indicated
--- NOTE | 2023-07-28 12:13 | PM.DS ---
DS: Providers Provider Date of Service: 07/29/23 Primary care physician: Darren Jaramillo MD DS: Diagnosis Discharge Diagnosis (1) Obesity (BMI 30-39.9): Status: Acute (2) BMI 33.0-33.9,adult: Status: Acute (3) Depression: Status: Acute (4) GERD (gastroesophageal reflux disease): Status: Acute (5) HSV (herpes simplex virus) infection: Status: Acute DS: Summary Hospital Course Hospital Course: ADMITTING DIAGNOSIS: morbid obesity, GERD DISCHARGE DIAGNOSIS: same, s/p laparoscopic sleeve gastrectomy PAST SURGICAL HISTORY: cholecystectomy, tubal ligation PROCEDURE: upper endoscopy, laparoscopic sleeve gastrectomy DISCHARGE SUMMARY: History of Present Illness: The patient is a 38 year-old woman with a BMI of 39.9 kg/m2 and associated co-morbidities as described above. The patient had extensive work-up, lost 46.2 lbs preoperatively and was electively scheduled for laparoscopic, possible open sleeve gastrectomy and gastropexy. Risks and complications of the surgery were discussed with the patient in advance, particularly the possibility of , pulmonary embolism, anastomotic leak, bleeding, bowel injury, GERD, cardiac, renal or pulmonary complications. The patient understood all the risks and was in agreement with the surgical plan. Hospital Course: The patient underwent an uneventful laparoscopic sleeve gastrectomy with gastropexy on the day of admission. Postoperatively, the patient was transferred to the surgical floor. The patient received IV Acetaminophen and IV dilaudid for pain control. Patient was started on bariatric phase 1 diet POD #0. On postoperative day one, the patient was feeling well without nausea, vomiting, fevers, or tachycardia. The patient had some mild incisional pain and the abdomen was soft. On the morning of postoperative day one, the patient was continued on 1 ounce of water or ice every half hour. During the day, the patient did fairly well, having some incisional pain, but able to ambulate adequately and to tolerate liquids well. Since the patient is doing well, we decided that the patient was ready to be discharged. The patient was given instructions to follow-up with me next week and to call my office for any fever over 101, persistent abdominal pain, nausea, vomiting, GERD, symptoms of DVT such as calf tenderness, or leg swelling, or pulmonary embolism such as chest pain or shortness of breath. The patient was also instructed to drink 40-60 ounces of liquids per day using the 1-ounce cups. The patient had been given prescriptions for Tylenol for pain, Zofran prn for nausea, and pantoprazole and carafate previously. The patient was encouraged to ambulate and use the incentive spirometer. The patient was allowed to shower, but no baths, and encouraged to stay active at home. All of these instructions were given to the patient personally. All questions were answered and the patient understood all instructions, the instructions were also given to the patient in print. Time Spent with Patient Time attestation: Total time managing care of this patient today ____ minutes. Discharge coordination time: Less than 30 minutes Quality: Safe Use of Opioids Does Pt have an Active Cancer Diagnosis on the Problem List?: No Quality: Stroke Does the patient have a stroke diagnosis?: No Physical Exam Vital Signs: Vital Signs: Last Vital Signs Temp 97.4 F 07/28/23 08:50 Pulse 72 07/28/23 08:50 Resp 16 07/28/23 08:50 BP 133/58 L 07/28/23 08:50 Pulse Ox 97 07/28/23 08:50 O2 Del Method Room Air 07/28/23 08:50 BMI result Body Mass Index 32.3 DS: Data Data Completed and Pending Pending studies at discharge: Pending at discharge 07/28/23 11:16 Surgical [PTH] Routine Discharge Plan Discharge Patient Disposition: Home, Self-Care Referrals: Darren Jaramillo MD [Primary Care Provider] - 1 Week Discharge Medications: No Action pantoprazole 40 mg tablet,delayed release (DR/EC) 40 mg PO DAILY Qty: 30 2RF sucralfate 100 mg/mL suspension 10 ml PO BID Qty: 400 2RF ondansetron 4 mg tablet,disintegrating 4 mg PO Q12H Qty: 20 0RF lysine [L-Lysine] 500 mg Tablet 500 mg PO DAILY valacyclovir 500 mg tablet 500 mg PO DAILY venlafaxine 37.5 mg capsule,extended release 24hr 37.5 mg PO DAILY Discharge Orders: Discharge Order (Routine); Ordered 07/29/23 Ordered By: Wilfredo Wilkins Activity on Discharge: No heavy lifting Activity Restrictions/Additional Instructions: No tub baths, sex or returning to work until discussed at first post op appointment. No exercise, alcohol, tobacco or illegal drug use. Continue to use incentive spirometer hourly while awake. Walk in home for 5- 10 minutes every 2 hours during the first week. Continue phase 1 diet today and start phase 2 diet tomorrow morning. Follow all instructions in the bariatric handbook and call with any questions. 1. Please call your doctor or come back to the emergency room should any new symptoms arise. 2. You will receive a courtesy call from [facility] 24-48 hours after discharge. 3. Activity: abstain from alcohol, practice limited stair climbing, no bending, no driving, no exercise, no illicit substances, no lifting, no sex, no tub bath, no work. 4. Diet: continue as discussed with bariatric team.. 5. Dressing Change/Wound Care: Do not change or remove surgical dressings unless they are wet or soiled. 6. Call your doctor if: - Your temperature exceeds 101.5 F - You experience excessive pain or swelling - You have an unexpected reaction to medication - You have excessive bleeding - You experience continued vomiting/nausea - Your incision begins to separate - Your incision shows signs of infection such as increased redness, swelling, excessive pain, heat, or drainage (light blood or clear fluid is normal) 7. General instructions: No lifting greater than 5 lbs for the next 4 weeks[address] driving within 24 hours of taking narcotic pain medications. If you do not move your bowels in the next 2 days, please take milk of magnesia over the counter. Please follow the post op diet and do not advance your diet until you are seen in the office in about 2 weeks. Please walk around your home every hour or two to prevent blood clots from forming in your legs. You do not need to wake from sleeping to walk. Please sleep in a bed or couch to prevent kinking at the hips and knees. Please take your incentive spirometer (your lung validation specialist) home with you and use it for the next few days to prevent pneumonias. You may shower, no hot tubs, baths or swimming pools. Please call the office with any questions or concerns such as increasing abdominal pain, fever, chills, shortness of breath, chest pain, leg pain or swelling, or redness or drainage from your incisions. Do not hesitate to contact the office with any questions at . The patient's medical history has been reviewed and they are considered low risk for post op DVT and therefore DVT prophylaxis is not considered necessary. Travel after surgery was reviewed. The patient has not disclosed any travel plans during the first 30 days after surgery and they have been advised that within the first 30 days after surgery any bus, plane, train or car travel over 2 hours in duration is contraindicated due to the possibility of developing blood clots from immobility. Any travel, needs to include periods of ambulation of 10 minutes in duration every 2 hours. The patient was instructed to discuss any plans for travel during this period with their bariatric surgeon.
[2023-07-28] MEDS: HYDROmorphone HCl 0.5 MG/0.5 ML SYRINGE 0.25 MG IVPUSH ×5 (12:21→17:54)
[2023-07-28 13:02] LABS: Hemoglobin 12.3 g/dl (12.0-16.0)
[2023-07-28] MEDS: fentaNYL citrate/PF 100 MCG/2 ML VIAL 25 MCG IVPUSH ×2 (13:05→13:10)
[2023-07-28 13:14] LABS: Anion Gap 15 (12-20); Blood Urea Nitrogen 9 mg/dL (9-16); Calcium 8.7 mg/dL (8.4-10.2); Carbon Dioxide 23 mmol/L (22-29); Chloride 105 mmol/L (96-108); Creatinine Clr Calc Pharmacy 134.5; Estimated Glomerular Filt Rate > 60; Glucose Random 115 mg/dL (60-115); Potassium 3.3 mmol/L (3.3-5.1); Sodium 140 mmol/L (135-145)
[2023-07-28] MEDS: Famotidine/PF 20 MG/2 ML VIAL IVPUSH ×2 (14:25→20:09)
[2023-07-28] MEDS: ceFAZolin Sodium/Dextrose,Iso 2 GM/50 ML PIGGYBACK IV (14:27)
[2023-07-28] MEDS: Acetaminophen 1,000 MG/100 ML PIGGYBACK 400 MG IV ×2 (16:10→22:18)
[2023-07-28] MEDS: 0.9 % Sodium Chloride Flush 3 ML SYRINGE IVFLUSH (20:09)
[2023-07-29] MEDS: HYDROmorphone HCl 0.5 MG/0.5 ML SYRINGE 0.25 MG IVPUSH (01:56)
[2023-07-29] MEDS: ondansetron HCL 4 MG/2 ML VIAL IVPUSH (02:05)
[2023-07-29 03:18] VITALS: BP 110/64; PULSE 68; RESP 18; TEMP 36.3; O2SAT 96
[2023-07-29 06:26] LABS: MANUAL DIFF FLAG NO
[2023-07-29 06:30] LABS: Basophils Percent Auto 0.3 % (0-2); Hematocrit 34.6 % (37.0-47.0); Hemoglobin 12.2 g/dl (12.0-16.0); Imm Gran Abs Auto 0.03 X10*3/uL (0.00-0.03); Imm Gran Pct Auto 0.4 % (0.0-0.4); Lymphocytes Absolute Auto 1.2 X10*3/uL (1.2-4.9); Lymphocytes Percent Auto 16.1 % (20-40); Mean Corpuscular HGB Conc 35.3 g/dl (31.0-35.0); Mean Corpuscular Hemoglobin 33.4 pg (27.0-33.0); Mean Corpuscular Volume 94.8 fL (80.0-98.0); Mean Platelet Volume 12.8 fL (9.4-12.3); Monocytes Absolute Auto 0.6 X10*3/uL (0.1-1.2); Monocytes Percent Auto 7.3 % (2-11); Neutrophils Absolute Auto 5.8 x10*3/uL (2.0-8.3); Neutrophils Percent Auto 75.9 % (45-73); Platelet Count 170 X10*3/uL (160-400); Red Blood Count 3.65 X10*6/uL (4.20-5.50); Red Cell Distribution Width 13.7 % (11.0-16.0); White Blood Count 7.6 X10*3/uL (4.8-10.8)
[2023-07-29 06:46] LABS: Anion Gap 13 (12-20); Blood Urea Nitrogen 7 mg/dL (9-16); Calcium 8.6 mg/dL (8.4-10.2); Carbon Dioxide 22 mmol/L (22-29); Chloride 108 mmol/L (96-108); Creatinine Clr Calc Pharmacy 142.8; Estimated Glomerular Filt Rate > 60; Glucose Random 105 mg/dL (60-115); Potassium 4.1 mmol/L (3.3-5.1); Sodium 139 mmol/L (135-145)
[2023-07-29] MEDS: Famotidine/PF 20 MG/2 ML VIAL IVPUSH (07:10)
[2023-07-29] MEDS: Venlafaxine HCl ER 37.5 MG CAP.ER.24H PO (07:10)
[2023-07-29 07:56] VITALS: BP 108/56; PULSE 57; RESP 18; TEMP 36.9; O2SAT 95
--- NOTE | 2023-07-29 11:25 | HO.POSTANES ---
Post Anesthesia Evaluation Post Anesthesia Evaluation Date of Service: 07/29/23 Vital Signs: Vital Signs Temp Pulse Resp BP Pulse Ox O2 Del Method O2 Flow Rate 07/29/23 07:56 98.4 F 57 18 108/56 L 95 Room Air 07/29/23 03:18 97.4 F 68 18 110/64 96 Room Air 07/28/23 23:27 97.1 F 55 18 99/55 L 100 Nasal Cannula 2 Anesthesia: General Endotracheal-GETA Mental Status: Awake Pain Control: Satisfactory Nausea/Vomiting: None Hydration: Adequate Anesthesia-Related Issues: No Anes. Related Issues
== END 2023-07-29 10:46 | disposition home or self-care (01) ==
LOC: HO.SSS 12:13 → HO.S3 12:48
PROVIDERS: Physician Assistant; PCP Family Medicine; Visit Provider Surgery
PROC: (CPT 43845; principal; 2023-07-28 10:10)
DX: E66.01 Morbid (severe) obesity due to excess calories (principal); Z68.33 Body mass index [BMI] 33.0-33.9, adult; K21.9 Gastro-esophageal reflux disease without esophagitis; B00.9 Herpesviral infection, unspecified; F32.A Depression, unspecified; Z79.899 Other long term (current) drug therapy; Z90.49 Acquired absence of other specified parts of digestive tract; Z98.51 Tubal ligation status
CPT/HCPCS: 43775; 43659; 36415; 80048; 80053; 80061; 83036; 83525; 84439; 84443; 85014; 85018; 85025; 85610; 85730; 86140; 86850; 86900; 86901; 88304; 88305; 88307; 88342; A4649; C9088; C9145; J0131; J0690; J1100; J1170; J2250; J2405; J2550; J2795; J3010

== ENCOUNTER → 2023-07-28 07:52 | Outpatient (BNV) | payer OTHER, SELFPAY | PROVIDERS: PCP Family Medicine; Visit Provider Surgery | DX: E66.9 Obesity, unspecified (principal); Z68.33 Body mass index [BMI] 33.0-33.9, adult | CPT/HCPCS: 43659; 43775 ==

== ENCOUNTER 2023-08-04 13:54 | Outpatient (AMB) | payer OTHER, SELFPAY ==
--- NOTE | 2023-08-04 14:25 | MHC.OFFVISWM ---
Intake VS Expanded 08/04/23 14:40 Height 5 ft 4.5 in Weight 180 lb 3.2 oz BMI 30.5 BP 104/51 L Blood Pressure Location Lt brachial Blood Pressure Position Sitting Pulse 89 Pulse Source Pulse Oximeter Temp 96.9 F Temperature Source Tympanic Pulse Oximetry 99 Oxygen Delivery Method Room Air Body Fat 67.4 Body Fat Percentage 37.5 Free Fat Mass 112.6 Muscle Mass 107 Visceral Mass 7.0 Water Mass 80.4 BMR 1,558 Intake Visit Reasons: (OV) 7 Days PO LSG 07/28/23 Allergies No Known Allergies Allergy (Verified 07/28/23 08:20) HPI HPI Comments History of Present Illness Details 38 yo female pod 7 s/p lSG on 07/28/23 baldemar 3 celebrate 4 in 1 shakes w 1 scoop each and an additional 18 oz water daily pos BM no sig pain PFSH Medical History (Updated 07/28/23 @ 10:03 by Wilfredo Wilkins MD) Body piercing HSV (herpes simplex virus) infection Pre-diabetes Depression Surgical History (Updated 07/28/23 @ 12:13 by CHELSIE JacksonC) History of loop electrical excision procedure (LEEP) Hx of wisdom tooth extraction Hx of cholecystectomy Hx of tubal ligation Family History Mother No problems noted. Father No problems noted. Daughter Anxiety Son Asthma Son No problems noted. Social History Household Members: Children Household Members Other:: children-dual custody w/ex-spouse Housing: Apartment Are you a primary daycare provider to a significant other at home: Yes (dual custody with ex-spouse, is primary caregiver when children are w/her) Do you presently have visiting nurse or other home services: No Alcohol intake: current Alcohol intake frequency: holidays/special occasions only Patient Tobacco Use Status: Never used Tobacco Tobacco use type: Cigarette Years Smoked: 10 Physical Exam Vital Signs: Last Vital Signs Temp 96.9 F 08/04/23 14:40 Pulse 89 08/04/23 14:40 BP 104/51 L 08/04/23 14:40 Pulse Ox 99 08/04/23 14:40 Oxygen Delivery Method Room Air 08/04/23 14:40 BMI result Body Mass Index 30.5 GI Inspection: Yes incision (c/d/i) Assessment & Plan Assessment & Plan (1) S/P laparoscopic sleeve gastrectomy: Code(s): Z98.84 - Bariatric surgery status Plan: POD 7 s/p LSG on 07/28/[address] Wilkins Weight loss prior to surgery was 48.9 pounds or 20.4% TBWL. Original weight on 03/16/23 was 239.4 pounds and op weight was 190.5 pounds. Be sure to text Dr Wilkins exactly 1 week after surgery your weight from your home scale so he can adjust your meal plan. Continue meal plan until f/u w aldana in 2 weeks May shower, no submersion in bath for another week Continue abdominal binder with activity and exercise for the next 2 weeks. Exercise prior to surgery was treadmill and stationary bike, may resume No abdominal exercises for 6 weeks post operatively Will be emailed link to post op video for review Reminded of the pace of drinking, 2 mL per minute, 1 oz/15 min. Coding Level of Care Code Global (46713) Diagnoses S/P laparoscopic sleeve gastrectomy Z98.84
[2023-08-04 14:40] VITALS: BP 104/51; PULSE 89; TEMP 36.1; O2SAT 99; BMI 30.5
== END 2023-08-04 15:44 | disposition home or self-care (01) ==
PROVIDERS: PCP Family Medicine; Visit Provider Physician Assistant Surgical
DX: E66.9 Obesity, unspecified (principal); Z68.30 Body mass index [BMI] 30.0-30.9, adult; Z90.3 Acquired absence of stomach [part of]; Z98.84 Bariatric surgery status
CPT/HCPCS: 99024

== ENCOUNTER → 2023-08-04 13:54 | Outpatient (BNVA) | payer OTHER, SELFPAY | PROVIDERS: Visit Provider Physician Assistant Surgical ==

== ENCOUNTER 2023-08-28 08:23 | Outpatient (AMB) | payer OTHER, SELFPAY ==
--- NOTE | 2023-08-28 08:25 | MHC.OFFVISWM ---
Intake VS Expanded 08/28/23 08:33 BP 119/60 Blood Pressure Location Rt brachial Blood Pressure Position Sitting Pulse 64 Pulse Source Pulse Oximeter Temp 97.8 F Temperature Source Temporal Artery Scan Pulse Oximetry 95 Oxygen Delivery Method Room Air Height 5 ft 4.5 in Weight 172 lb 9.6 oz BMI 29.2 Body Fat % 33.9 Body Fat Mass 58.4 Fat Free Mass 114.0 Visceral Fat Rating 6.0 Body Water % 47.3 Body Water Mass 81.6 Muscle Mass/Score 108.2 Basal Metabolic Rate/Score 1,559 Intake Visit Reasons: (OV) PO LSG 07/28/23 Shingle Trimmer Required: No Allergies No Known Allergies Allergy (Verified 08/28/23 08:28) Medication List - Last Reconciled 08/28/23 by KENJI Perez pantoprazole 40 mg PO DAILY sucralfate 10 mL PO BID valacyclovir 500 mg PO DAILY venlafaxine ER 37.5 mg PO DAILY HPI HPI Comments History of Present Illness Details This?a?38?yo female who is s/p LSG without hiatal hernia repair on?07/28/[address] Wilkins. Presents for 1 month post op visit. Weight today is 172.6 pounds, with a BMI of 29.2. There has been a 66.8 pound weight loss,(initial weight 239.4 pounds) since starting the program on 03/16/23 reflecting a 27.9% total body weight loss and a weight loss of 17.9 pounds since surgery (operative weight 190.5 pounds) reflecting a 9.3% TBWL since surgery. No complaints of nausea, emesis, abdominal pain or reflux. Reports infrequent but normal bowel movements every 1-2 days and uses stool softeners regularly. Feels as though the last shake is not working for her as she is in bed by 9 Present meal plan includes: Celebrate 4 in 1, 1 scoop 7-9, 10-12, 1-3 Atikins bar 4-7 shake 8-10 Drinking 40 oz water ? Exercise routine includes: none [facility] Medical History (Updated 08/06/23 @ 00:03 by Betsey Mclaughlin) Body piercing HSV (herpes simplex virus) infection Pre-diabetes Depression Surgical History History of loop electrical excision procedure (LEEP) Hx of wisdom tooth extraction Hx of cholecystectomy Hx of tubal ligation Family History Mother No problems noted. Father No problems noted. Daughter Anxiety Son Asthma Son No problems noted. Social History Household Members: Children Household Members Other:: children-dual custody w/ex-spouse Housing: Apartment Are you a primary medicare compliance auditor to a significant other at home: Yes (dual custody with ex-spouse, is primary caregiver when children are w/her) Do you presently have visiting nurse or other home services: No Alcohol intake: current Alcohol intake frequency: holidays/special occasions only Patient Tobacco Use Status: Former Tobacco user Quit Date: 2010 Tobacco use type: Cigarette Years Smoked: 10 Physical Exam GI Inspection: Yes incision (c/d/i) Assessment & Plan Assessment & Plan (1) S/P laparoscopic sleeve gastrectomy: Code(s): Z98.84 - Bariatric surgery status Plan: change meal plan to celebrate 4 in 1 2 scoops 7-9, 1 scoop 10-12, 1-3 atkins bar 4-7 resume exercise text w questions rtc 1 month Coding Level of Care Code Global (25147) Diagnoses S/P laparoscopic sleeve gastrectomy Z98.84
[2023-08-28 08:33] VITALS: BP 119/60; PULSE 64; TEMP 36.6; O2SAT 95; BMI 29.2
== END 2023-08-28 08:59 | disposition home or self-care (01) ==
PROVIDERS: PCP Family Medicine; Visit Provider Physician Assistant Surgical
DX: E66.3 Overweight (principal); Z68.29 Body mass index [BMI] 29.0-29.9, adult; Z90.3 Acquired absence of stomach [part of]; Z98.84 Bariatric surgery status
CPT/HCPCS: 99024

== ENCOUNTER → 2023-08-28 08:23 | Outpatient (BNVA) | payer OTHER, SELFPAY | PROVIDERS: PCP Family Medicine; Visit Provider Physician Assistant Surgical ==

== ENCOUNTER 2023-09-25 11:32 | Outpatient (AMB) | payer OTHER, SELFPAY ==
--- NOTE | 2023-09-25 11:06 | A.OFFVIS_ITS ---
Intake VS Expanded 09/25/23 11:07 Height 5 ft 4.5 in Weight 159 lb 3.2 oz BMI 26.9 Body Fat % 32.4 Body Fat Mass 51.5 Fat Free Mass 107.6 Visceral Fat Rating 10 Body Water % 46.4 Body Water Mass 73.8 Muscle Mass/Score 101.2 Basal Metabolic Rate/Score 1,435 Intake Visit Reasons: VIDEO PO LSG 07/28/23 Manager Corporate Responsibility Required: No Allergies No Known Allergies Allergy (Verified 08/28/23 08:28) Medication List - Last Reconciled 09/25/23 by KENJI Perez pantoprazole 40 mg PO DAILY sucralfate 10 mL PO BID valacyclovir 500 mg PO DAILY venlafaxine ER 37.5 mg PO DAILY HPI HPI Comments History of Present Illness Details This?a?38?yo female who is s/p LSG without hiatal hernia repair on?07/28/[address] Wilkins. Presents for 2 month post op visit. Weight today is 159.2 pounds, with a BMI of 27.5. There has been a 80.2 pound weight loss,(initial weight 239.4 pounds) since starting the program on 03/16/23 reflecting a 33.5% total body weight loss and a weight loss of 31.3 pounds since surgery (operative weight 190.5 pounds) reflecting a 16.4% TBWL since surgery. No complaints of nausea, emesis, abdominal pain or reflux. Reports infrequent but normal bowel movements every 1-2 days and uses stool softeners regularly. Feels as though things are going well. She states that she feels great. She would like to start food. Present meal plan includes: celebrate 4 in 1 in unsweetened almond milk 2 scoops 7-9, 1 scoop 10-12, 1-3 atkins bar 4-7 Drinking 40 oz water ? Exercise routine includes: notes decrease energy and motivation. walking 3 miles at lunchtime on treadmill, 300 calories 5 days of the week. Just ordered a stationary bike. [facility] Medical History Body piercing HSV (herpes simplex virus) infection Pre-diabetes Depression Surgical History History of loop electrical excision procedure (LEEP) Hx of wisdom tooth extraction Hx of cholecystectomy Hx of tubal ligation Family History Mother No problems noted. Father No problems noted. Daughter Anxiety Son Asthma Son No problems noted. Social History Household Members: Children Household Members Other:: children-dual custody w/ex-spouse Housing: Apartment Are you a primary child care sitter to a significant other at home: Yes (dual custody with ex-spouse, is primary caregiver when children are w/her) Do you presently have visiting nurse or other home services: No Alcohol intake: current Alcohol intake frequency: holidays/special occasions only Patient Tobacco Use Status: Former Tobacco user Quit Date: 2010 Tobacco use type: Cigarette Years Smoked: 10 Review of Systems Const All systems reviewed & are unremarkable except as noted in HPI and below Assessment & Plan Assessment & Plan (1) Overweight (BMI 25.0-29.9): Code(s): E66.3 - Overweight Plan: change meal plan: Continue celebrate 4 in 1 ,2 scoops, 1 scoop, 1 scoop Meal 4 forks protein and 2 forks veg rtc 1 month Continue exercise and incorporate bike. rtc 3 weeks Telehealth Telehealth Location of provider rendering services: practice address Location of patient: address on file Patient Identification confirmed using: Name, : Yes Telehealth method: voice only Patient verbally consented to treatment: Yes Patient verbally consented to billing insurance company: Yes Patient informed of any privacy concerns related to visit: Yes Minutes spent on Phone/Video with Pt.: 20 Coding Level of Care Code Global (15089) Diagnoses Overweight (BMI 25.0-29.9) E66.3
[2023-09-25 11:07] VITALS: BMI 26.9
== END 2023-09-25 11:35 | disposition home or self-care (01) ==
LOC: HO.HBS 11:32
PROVIDERS: PCP Family Medicine; Visit Provider Physician Assistant Surgical
DX: E66.3 Overweight (principal); Z68.26 Body mass index [BMI] 26.0-26.9, adult
CPT/HCPCS: 99024

== ENCOUNTER → 2023-09-25 11:32 | Outpatient (BNVA) | payer OTHER, SELFPAY | PROVIDERS: PCP Family Medicine; Visit Provider Physician Assistant Surgical ==

== ENCOUNTER 2023-10-19 15:51 | Outpatient (AMB) | payer OTHER, SELFPAY ==
--- NOTE | 2023-10-19 14:01 | MHC.OFFVISWM ---
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 Presents for 2 month 3 week post op visit. Weight today is 151.8 pounds, with a BMI of 27.5. There has been a 87.6 pound weight loss,(initial weight 239.4 pounds) since starting the program on 03/16/23 reflecting a 36.5% total body weight loss and a weight loss of 38.7 pounds since surgery (operative weight 190.5 pounds) reflecting a 20.3% TBWL since surgery. No complaints of nausea, emesis, abdominal pain or reflux. Reports infrequent but normal bowel movements every 1-2 days and uses stool softeners regularly. Feels as though things are going well. She has tolerated the meal plan without difficulty. She states she feels amazing and fantastic. She wants to switch off of the celebrate States she is taking the celebrate Present meal plan includes: celebrate 4 in 1 in unsweetened almond milk 2 scoops 7-9, 1 scoop 10-12, 1-3 meal 4 forks protein and 2 forks cooked veg 4-7 Drinking 56 oz fluids daily ? Exercise routine includes: stationary bike 1 hour daily, 300 calories PFSH Medical History Body piercing HSV (herpes simplex virus) infection Pre-diabetes Depression Surgical History History of loop electrical excision procedure (LEEP) Hx of wisdom tooth extraction Hx of cholecystectomy Hx of tubal ligation Family History Mother No problems noted. Father No problems noted. Daughter Anxiety Son Asthma Son No problems noted. Household Members: Children Household Members Other:: children-dual custody w/ex-spouse Housing: Apartment Are you a primary home health care social worker to a significant other at home: Yes (dual custody with ex-spouse, is primary caregiver when children are w/her) Do you presently have visiting nurse or other home services: No Alcohol intake: current Alcohol intake frequency: holidays/special occasions only Patient Tobacco Use Status: Former Tobacco user Quit Date: 2010 Tobacco use type: Cigarette Years Smoked: 10 Assessment & Plan Assessment & Plan (1) S/P laparoscopic sleeve gastrectomy: Code(s): Z98.84 - Bariatric surgery status Plan: Patient wishes to change her meal plan to switch to orgain protein shake. Meal plan: Or gain shake, 2 scoops at 07:29 One scoop 10-12 noon One scoop 1-3 p.m. Meal 17:00 6 forks protein and 4 4. Vegetables. Encouraged to take a celebrate multi vitamin, 1 daily as well as calcium plus D twice daily. Encouraged to increase the tension on her stationary bike which is done manually, this should decrease the time it takes for her to reach 300 calories daily. Increase water to 64 oz total of fluids including her shakes. Return to clinic 3 weeks. (2) Overweight (BMI 25.0-29.9): Code(s): E66.3 - Overweight Telehealth Telehealth Location of provider rendering services: practice address Location of patient: address on file Patient Identification confirmed using: Name, : Yes Telehealth method: voice only Patient verbally consented to treatment: Yes Patient verbally consented to billing insurance company: Yes Patient informed of any privacy concerns related to visit: Yes Minutes spent on Phone/Video with Pt.: 15 Coding Level of Care Code Global (35179) Diagnoses S/P laparoscopic sleeve gastrectomy Z98.84 Overweight (BMI 25.0-29.9) E66.3
[2023-10-19 14:03] VITALS: BMI 25.6
== END 2023-10-19 15:53 | disposition home or self-care (01) ==
LOC: HO.HBS 15:51
PROVIDERS: PCP Family Medicine; Visit Provider Physician Assistant Surgical
DX: E66.3 Overweight (principal); Z68.25 Body mass index [BMI] 25.0-25.9, adult; Z90.3 Acquired absence of stomach [part of]; Z98.84 Bariatric surgery status
CPT/HCPCS: 99024

== ENCOUNTER → 2023-10-19 15:51 | Outpatient (BNVA) | payer OTHER, SELFPAY | PROVIDERS: PCP Family Medicine; Visit Provider Physician Assistant Surgical ==

== ENCOUNTER 2023-11-09 14:30 | Outpatient (AMB) | payer OTHER, SELFPAY ==
--- NOTE | 2023-11-09 14:39 | A.OFFVIS_ITS ---
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 Presents for 3 month post op visit. Weight today is 148.8 pounds, with a BMI of 25.1. There has been a 90.6 pound weight loss,(initial weight 239.4 pounds) since starting the program on 03/16/23 reflecting a 37.8% total body weight loss and a weight loss of 41.7 pounds since surgery (operative weight 190.5 pounds) reflecting a 21.8% TBWL since surgery. No complaints of nausea, emesis, abdominal pain or reflux. Reports infrequent b ut normal bowel movements every 1-2 days and uses stool softeners regularly. She has been following the meal plan without problems. She would like to change to one shake a day, likes atkins protein bar Present meal plan includes: Orgain 2 scoops in 8 oz unsweetened almond milk 7-9 am 1 scoop 10-12 pm, 1-3 pm meal at 5 pm 6 forks protein and 4 forks veg Drinking 40 oz fluids daily ? Exercise routine includes: PF 5 days per week: 400 tono treadmill, 300 tono on bike stationary bike 1 hour daily, 300 calories PFSH Medical History Body piercing HSV (herpes simplex virus) infection Pre-diabetes Depression Surgical History History of loop electrical excision procedure (LEEP) Hx of wisdom tooth extraction Hx of cholecystectomy Hx of tubal ligation Family History Mother No problems noted. Father No problems noted. Daughter Anxiety Son Asthma Son No problems noted. Social History Household Members: Children Household Members Other:: children-dual custody w/ex-spouse Housing: Apartment Are you a primary childcare center director to a significant other at home: Yes (dual custody with ex-spouse, is primary caregiver when children are w/her) Do you presently have visiting nurse or other home services: No Alcohol intake: current Alcohol intake frequency: holidays/special occasions only Patient Tobacco Use Status: Former Tobacco user Quit Date: 2010 Tobacco use type: Cigarette Years Smoked: 10 Physical Exam Const General: healthy appearing and no acute distress Resp Effort & Inspection: normal respiratory effort Auscultation: clear to auscultation bilaterally Cardio Rate: regular rate Rhythm: regular rhythm GI Auscultation: normal bowel sounds Extrem General: Yes normal to inspection Assessment & Plan Assessment & Plan (1) Overweight (BMI 25.0-29.9): Code(s): E66.3 - Overweight Plan: Change meal plan per patient's request Orgain, 2 scoops in 10 oz of almond milk 2 meals with 6 forks of protein in 4-6 forks of salad or vegetables Change taking her vitamins to nighttime. Increased weightlifting at the gym for toning and muscle building, continue cardio. Return to the office in 6 weeks Coding Level of Care Code Est Pt Level 3 (96851) Diagnoses Overweight (BMI 25.0-29.9) E66.3
[2023-11-09 14:51] VITALS: BP 123/58; PULSE 76; TEMP 35.8; O2SAT 96; BMI 25.1
== END 2023-11-09 15:46 | disposition home or self-care (01) ==
PROVIDERS: PCP Family Medicine; Visit Provider Physician Assistant Surgical
DX: E66.3 Overweight (principal); Z68.25 Body mass index [BMI] 25.0-25.9, adult; Z90.3 Acquired absence of stomach [part of]; Z98.84 Bariatric surgery status
CPT/HCPCS: 99213

== ENCOUNTER → 2023-11-09 14:30 | Outpatient (BNVA) | payer OTHER, SELFPAY | PROVIDERS: PCP Family Medicine; Visit Provider Physician Assistant Surgical ==

== ENCOUNTER 2023-12-21 15:51 | Outpatient (AMB) | payer OTHER, SELFPAY ==
[2023-12-21 11:00] VITALS: BMI 24.8
--- NOTE | 2023-12-21 11:00 | MHC.OFFVISWM ---
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 Presents for 4.5 month post op visit. Weight today is 146.8 pounds, with a BMI of 24.8. There has been a 92.6 pound weight loss,(initial weight 239.4 pounds) since starting the program on 03/16/23 reflecting a 38.6% total body weight loss and a weight loss of 43.7 pounds since surgery (operative weight 190.5 pounds) reflecting a 22.9% TBWL since surgery. No complaints of nausea, emesis, abdominal pain or reflux. Reports infrequent but normal bowel movements every 1-2 days and uses stool softeners regularly. She has been following the meal plan without problems. She feels as though she is grabbing crackers to snack on due to feeling hunger around 230 in the afternoon. She has also had a change in her hours, at the gym at 3 am Previously using Atkins protein bar Wakes at 330 am bed at 830 pm, work 6am-230 pm Present meal plan includes: Orgain, 2 scoops in 10 oz of almond milk, 7 am 2 meals with 6 forks of protein in 4-6 forks of salad or vegetables, 1130 am and 6 pm Change taking her vitamins to nighttime. Drinking 40 oz fluids daily ? Exercise routine includes: stretching then weights and cardio PF 5-6 days per week: 400 tono treadmill, elliptical PFSH Medical History Body piercing HSV (herpes simplex virus) infection Pre-diabetes Depression Surgical History History of loop electrical excision procedure (LEEP) Hx of wisdom tooth extraction Hx of cholecystectomy Hx of tubal ligation Family History Mother No problems noted. Father No problems noted. Daughter Anxiety Son Asthma Son No problems noted. Social History Household Members: Children Household Members Other:: children-dual custody w/ex-spouse Housing: Apartment Are you a primary intensive care anaesthetist to a significant other at home: Yes (dual custody with ex-spouse, is primary caregiver when children are w/her) Do you presently have visiting nurse or other home services: No Alcohol intake: current Alcohol intake frequency: holidays/special occasions only Patient Tobacco Use Status: Former Tobacco user Quit Date: 2010 Tobacco use type: Cigarette Years Smoked: 10 Assessment & Plan Assessment & Plan (1) S/P laparoscopic sleeve gastrectomy: Code(s): Z98.84 - Bariatric surgery status Plan: Add in a yogurt with fresh berries or an Atkins bar around 2 in the afternoon. Continue with weight training for muscle tone. Return to clinic in office for 6 month postop follow-up visit and check labs at that time. Recommend change from celebrate to fusion multivitamin. Telehealth Telehealth Location of provider rendering services: practice address Location of patient: address on file Patient Identification confirmed using: Name, : Yes Telehealth method: voice only Patient verbally consented to treatment: Yes Patient verbally consented to billing insurance company: Yes Patient informed of any privacy concerns related to visit: Yes Minutes spent on Phone/Video with Pt.: 15 Coding Level of Care Code Tele Est Pt Level 3 (89531) Diagnoses S/P laparoscopic sleeve gastrectomy Z98.84 Time Spent (min) 20
== END 2023-12-21 16:22 | disposition home or self-care (01) ==
LOC: HO.HBS 15:51
PROVIDERS: PCP Family Medicine; Visit Provider Physician Assistant Surgical
DX: Z71.3 Dietary counseling and surveillance (principal); Z90.3 Acquired absence of stomach [part of]; Z98.84 Bariatric surgery status
CPT/HCPCS: 99213

== ENCOUNTER → 2023-12-21 15:51 | Outpatient (BNVA) | payer OTHER, SELFPAY | PROVIDERS: PCP Family Medicine; Visit Provider Physician Assistant Surgical ==

== ENCOUNTER 2024-01-16 07:01 | Outpatient (REF) | payer OTHER, SELFPAY ==
[2024-01-16 07:23] LABS: MANUAL DIFF FLAG NO
[2024-01-16 07:49] LABS: Basophils Percent Auto 1.1 % (0-2); Eosinophils Absolute Auto 0.1 X10*3/uL (0.0-0.4); Eosinophils Percent Auto 3.2 % (0-4); Hematocrit 40.6 % (37.0-47.0); Hemoglobin 13.6 g/dl (12.0-16.0); Imm Gran Abs Auto 0.01 X10*3/uL (0.00-0.03); Imm Gran Pct Auto 0.3 % (0.0-0.4); Lymphocytes Absolute Auto 1.5 X10*3/uL (1.2-4.9); Lymphocytes Percent Auto 39.2 % (20-40); Mean Corpuscular HGB Conc 33.5 g/dl (31.0-35.0); Mean Corpuscular Hemoglobin 31.9 pg (27.0-33.0); Mean Corpuscular Volume 95.3 fL (80.0-98.0); Mean Platelet Volume 11.2 fL (9.4-12.3); Monocytes Absolute Auto 0.2 X10*3/uL (0.1-1.2); Monocytes Percent Auto 4.8 % (2-11); Neutrophils Absolute Auto 1.9 x10*3/uL (2.0-8.3); Neutrophils Percent Auto 51.4 % (45-73); Platelet Count 205 X10*3/uL (160-400); Red Blood Count 4.26 X10*6/uL (4.20-5.50); Red Cell Distribution Width 12.8 % (11.0-16.0); White Blood Count 3.7 X10*3/uL (4.8-10.8)
[2024-01-16 08:04] LABS: Estimated Average Glucose 94 mg/dL; Hemoglobin A1c % 4.9 % (<6.0)
[2024-01-16 08:18] LABS: Anion Gap 11 (12-20); Blood Urea Nitrogen 13 mg/dL (9-16); C Reactive Protein < 0.10 mg/dL (< or = 0.50); Calcium 9.1 mg/dL (8.4-10.2); Carbon Dioxide 30 mmol/L (22-29); Chloride 107 mmol/L (96-108); Cholesterol 170 mg/dL (<200); Estimated Glomerular Filt Rate > 60; Glucose Random 90 mg/dL (60-115); HDL Cholesterol 66 mg/dL (>40); Iron 124 mcg/dL (30-160); LDL Cholesterol Calculated 93 mg/dL (<100); Percent Iron Saturation 42 % (15-50); Potassium 4.3 mmol/L (3.3-5.1); Sodium 144 mmol/L (135-145); Total Iron Binding Capacity 293 mcg/dL (228-428); Triglycerides 57 mg/dL (<150); Unsaturated Iron Binding 169 ug/dL
[2024-01-16 08:38] LABS: Ferritin 63 ng/mL (10-122); Insulin 3 uU/mL (2-29); TSH reflex Free T4 1.87 uIU/mL (0.32-4.0); Vitamin D 25-OH Total 46.6 ng/mL (>30)
[2024-01-16 08:50] LABS: Folate 14.6 ng/mL (> or = 4.0); Vitamin B12 633 pg/mL (200-900)
[2024-01-19 16:29] LABS: Zinc 83 mcg/dL (60-130)
[2024-01-21 04:38] LABS: Vitamin A 50 mcg/dL (38-98)
[2024-01-22 16:15] LABS: Vitamin B1 29 nmol/L (8-30)
== END 2024-01-16 07:02 | disposition home or self-care (01) ==
LOC: HO.LAB 07:01
PROVIDERS: Visit Provider Physician Assistant Surgical
DX: E66.3 Overweight (principal); Z98.84 Bariatric surgery status
CPT/HCPCS: 36415; 80048; 80061; 82306; 82607; 82728; 82746; 83036; 83525; 83540; 84425; 84443; 84590; 84630; 85025; 86140

== ENCOUNTER 2024-02-15 15:27 | Outpatient (AMB) | payer OTHER, SELFPAY ==
[2024-02-15 10:24] VITALS: BMI 25.9
--- NOTE | 2024-02-15 10:24 | MHC.OFFVISWM ---
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 Presents for 6 month post op visit. Weight today is 153.2 pounds, with a BMI of 25.9. There has been a 86.2 pound weight loss,(initial weight 239.4 pounds) since starting the program on 03/16/23 reflecting a 36% total body weight loss and a weight loss of 37.3 pounds since surgery (operative weight 190.5 pounds) reflecting a 19.5% TBWL since surgery. No complaints of nausea, emesis, abdominal pain or reflux. Reports infrequent but normal bowel movements every 1-2 days and uses stool softeners regularly. She has been following the meal plan without problems. She feels great although she has noticed excess skin of her arms. This is not currently causing her pain or significant rashes but she will monitor closely and contact me if any rashes occur. Wakes at 330 am bed at 830 pm, work 6am-230 pm Present meal plan includes: Orgain, 2 scoops in 10 oz of almond milk, 7 am 2 meals with 6 forks of protein in 4-6 forks of salad or vegetables, 1130 am and 6 pm yi yogurt or atkins bar 2 pm Change taking her vitamins to nighttime. Drinking 40 oz fluids daily ? Exercise routine includes: stretching then weights and cardio PF 5-6 days per week: 400 tono treadmill, elliptical PFSH Medical History Body piercing HSV (herpes simplex virus) infection Pre-diabetes Depression Surgical History History of loop electrical excision procedure (LEEP) Hx of wisdom tooth extraction Hx of cholecystectomy Hx of tubal ligation Family History Mother No problems noted. Father No problems noted. Daughter Anxiety Son Asthma Son No problems noted. Social History Household Members: Children Household Members Other:: children-dual custody w/ex-spouse Housing: Apartment Are you a primary daytime caregiver to a significant other at home: Yes (dual custody with ex-spouse, is primary caregiver when children are w/her) Do you presently have visiting nurse or other home services: No Alcohol intake: current Alcohol intake frequency: holidays/special occasions only Patient Tobacco Use Status: Former Tobacco user Quit Date: 2010 Tobacco use type: Cigarette Years Smoked: 10 Assessment & Plan Assessment & Plan (1) S/P laparoscopic sleeve gastrectomy: Code(s): Z98.84 - Bariatric surgery status Plan: Check of six-month postop labs shows no significant dyscrasias. Encouraged to take a calcium plus D daily. Continue current meal plan and exercise plan as she is very happy with both of these at this time. She was encouraged to incorporate triceps work with weight training. She will notify us with any rash of the upper arm secondary to excess skin. Return to the office 2 months with the understanding that she will continue to text with any questions or concerns. Telehealth Telehealth Location of provider rendering services: practice address Location of patient: address on file Patient Identification confirmed using: Name, : Yes Telehealth method: voice only Patient verbally consented to treatment: Yes Patient verbally consented to billing insurance company: Yes Patient informed of any privacy concerns related to visit: Yes Minutes spent on Phone/Video with Pt.: 12 Coding Level of Care Code Tele Est Pt Level 3 (90248) Diagnoses S/P laparoscopic sleeve gastrectomy Z98.84 Time Spent (min) 20
== END 2024-02-15 15:35 | disposition home or self-care (01) ==
LOC: HO.HBS 15:27
PROVIDERS: PCP Family Medicine; Visit Provider Physician Assistant Surgical
DX: E66.3 Overweight (principal); Z68.25 Body mass index [BMI] 25.0-25.9, adult; Z90.3 Acquired absence of stomach [part of]; Z98.84 Bariatric surgery status
CPT/HCPCS: 99213

== ENCOUNTER → 2024-02-15 15:27 | Outpatient (BNVA) | payer OTHER, SELFPAY | PROVIDERS: PCP Family Medicine; Visit Provider Physician Assistant Surgical ==